=== PATIENT | male | born 1985 | race African-American/Black ===

== ENCOUNTER 2019-11-07 11:01 | Emergency (ER) | payer SELFPAY ==
[2019-11-07] MEDS ORDERED: Ibuprofen 800 MG TAB ONE (11:03)
[2019-11-07] MEDS ORDERED: Acetaminophen 500 MG TAB ONE (11:03)
[2019-11-07] MEDS ORDERED: Ondansetron ODT 4 MG TAB ONE (11:16)
== END 2019-11-07 11:38 | disposition home or self-care (01) ==
LOC: ERS 11:01
DX: J10.1 Influenza due to other identified influenza virus with other respiratory manifestations (principal)
CPT/HCPCS: 87804; 99283; Q0162